=== PATIENT | male | born 1990 | race Caucasian/White ===

== ENCOUNTER 2020-07-26 16:14 | Emergency (ER) | payer OTHER ==
[~2020-07-26] VITALS: Ht 188 cm; Wt 79.4 kg
[2020-07-26] MEDS ORDERED: FLUTICASONE-SA1 EAC5 (16:36)
== END 2020-07-26 17:43 | disposition home or self-care (01) ==
LOC: ER 16:14
DX: J45.998 Other asthma (principal); Z76.0 Encounter for issue of repeat prescription